=== PATIENT | male | born 1960 | race Caucasian/White ===

== ENCOUNTER 2019-12-20 22:23 | Emergency (ER) | payer OTHER ==
[~2019-12-20] VITALS: Ht 167.6 cm; Wt 81.6 kg
[2019-12-20 22:30] VITALS: BP 126/79; Ht 167.6 cm; Wt 81.6 kg
== END 2019-12-20 23:11 | disposition other institution (70) ==
LOC: ED 22:23
DX: Z02.89 Encounter for other administrative examinations (principal)